=== PATIENT | female | born 1955 | race Caucasian/White ===

== ENCOUNTER → 2016-10-14 | Outpatient (CLI) | payer OTHER ==
--- NOTE | 2016-10-14 13:58 | DX ---
Right Hip, Two Views. History: Right hip pain. Findings: There is mild subarticular sclerosis and spurring in the superior acetabulum right hip. No significant joint narrowing. No evidence for acute fracture or dislocation. No evidence for periartic ular erosion. Degenerative disk and degenerative joint disease is seen in the lower lumbar spine. Tra nsitional vertebra is seen at the lumbosacral junction. Impression: Minimal early degenerative change right hip. Degenerative disk and degenerative joint dis ease lower lumbar spine.
== END ==
LOC: BMCIMAGING 13:00
PROVIDERS: ATTEND Internal Medicine
DX: M25.551 Pain in right hip (principal); M51.36 Other intervertebral disc degeneration, lumbar region